=== PATIENT | female | born 1955 | race Caucasian/White ===

== ENCOUNTER 2017-07-14 07:33 | Emergency (ER) | payer BC ==
[2017-07-14 07:46] VITALS: BP 148/91
--- NOTE | 2017-07-14 08:09 | EDM.PDOC ---
ED HPI GENERAL MEDICAL PROBLEM - General Chief Complaint: Bite:Animal, Insect Stated Complaint: TICK BITES BEHIND EARS Time Seen by Provider: 07/14/17 08:00 Source of Information: Reports: Patient History Limitations: Reports: No Limitations - History of Present Illness INITIAL COMMENTS - FREE TEXT/NARRATIVE: 62-year-old female pulled ticks off of the back of her ears yesterday and now has inflammation and concerns. No fevers or chills. Her sister had Lyme's disease and she is very fearful of it. 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 Musculoskeletal History: Reports: Arthritis, Fracture Endocrine/Metabolic History: Reports: Hypothyroidism - Past Surgical History HEENT Surgical History: Reports: Tonsillectomy Other HEENT Surgeries/Procedures: sinus surgery GI Surgical History: Reports: Appendectomy Other GI Surgeries/Procedures: hemorrhoids removed Female Surgical History: Reports: D&C Endocrine Surgical History: Reports: Thyroidectomy Social & Family History - Tobacco Use Smoking Status *Q: Current Every Day Smoker Years of Tobacco use: 40 Packs/Tins Daily: 0.5 - Caffeine Use Caffeine Use: Reports: Coffee - Recreational Drug Use Recreational Drug Use: No ED ROS GENERAL - Review of Systems Review Of Systems: See Below Constitutional: Denies: Fever, Chills Respiratory: Denies: Shortness of Breath GI/Abdominal: Denies: Nausea, Vomiting Neurological: Denies: Headache Psychiatric: Reports: No Symptoms ED EXAM, ANIMAL BITE - Physical Exam Exam: See Below Exam Limited By: No Limitations General Appearance: Alert, No Apparent Distress Ears: Other (In the posterior auricular areas of both ears there is a small puncture bite kenia with surrounding inflammation) Neck: No: Lymphadenopathy (R), Lymphadenopathy (L) Respiratory/Chest: No Respiratory Distress Course - Vital Signs Last Recorded V/S: Last Vital Signs Temp 97.1 F 07/14/17 07:46 Pulse 74 07/14/17 07:46 Resp 16 07/14/17 07:46 BP 148/91 H 07/14/17 07:46 Pulse Ox 95 07/14/17 07:46 - Re-Assessments/Exams Free Text/Narrative Re-Assessment/Exam: 07/14/17 08:07 Patient will be placed on doxycycline twice daily for 3 days, and given extra doses for further bites if needed. [place] inf[place]. She'll return if she develops more symptoms. Departure - Departure Time of Disposition: 08:19 Disposition: Home, Self-Care 01 Condition: Good Clinical Impression: Tick bite of head Qualifiers: Encounter type: initial encounter Qualified Code(s): S00.96XA - Insect bite ( nonvenomous) of unspecified part of head, initial encounter - Discharge Information Instructions: Tick Bite Information, Adult Referrals: Richard Sidhu MD [Primary Care Provider] - Forms: ED Department Discharge Care Plan Goals: Take antibiotic twice a day for 3 days. Keep bites clean while healing and return if worsening despite treatment such as fever or generalized pain or rash.
== END 2017-07-14 08:19 | disposition home or self-care (01) ==
LOC: JP.ED 07:33
DX: S00.462A Insect bite (nonvenomous) of left ear, initial encounter (principal); S00.461A Insect bite (nonvenomous) of right ear, initial encounter; W57.XXXA Bitten or stung by nonvenomous insect and other nonvenomous arthropods, initial encounter; Z88.1 Allergy status to other antibiotic agents
CPT/HCPCS: 99283

== ENCOUNTER 2022-02-25 19:38 | Emergency (ER) | payer BC ==
[2022-02-25 22:06] VITALS: BP 115/68; PULSE 67
== END 2022-02-25 23:00 | disposition other institution (70) ==
LOC: JP.ED 19:38
DX: R07.89 Other chest pain (principal); R94.39 Abnormal result of other cardiovascular function study; I10 Essential (primary) hypertension; I25.2 Old myocardial infarction; F17.210 Nicotine dependence, cigarettes, uncomplicated; Z88.1 Allergy status to other antibiotic agents; Z79.899 Other long term (current) drug therapy; Z90.49 Acquired absence of other specified parts of digestive tract
CPT/HCPCS: 36415; 84484; 93005; 93010; 99285

== ENCOUNTER 2024-07-26 07:56 | Day surgery (SDC) | payer MEDICARE, BC ==
[~2024-07-26 07:56] MED LIST: Propofol 200 MG/20 ML SDV ONE; fentaNYL 50 MCG/ML SDV ONE
[2024-07-26] MEDS: Lactated Ringers 1,000 ML IV SCH (08:53)
[2024-07-26] MEDS ORDERED: Propofol 200 MG/20 ML SDV ONE (10:07)
[2024-07-26 11:14] VITALS: PULSE 74
[2024-07-26 11:15] VITALS: BP 126/85
== END 2024-07-26 11:25 | disposition home or self-care (01) ==
LOC: JP.SDS 07:56
PROVIDERS: ATTEND Surgery
DX: Z12.11 Encounter for screening for malignant neoplasm of colon (principal); R19.5 Other fecal abnormalities; K63.5 Polyp of colon; K57.30 Diverticulosis of large intestine without perforation or abscess without bleeding; I10 Essential (primary) hypertension; F17.200 Nicotine dependence, unspecified, uncomplicated
CPT/HCPCS: 00811; 45380; 88305; J2704; J3010; J7120